=== PATIENT | female | born 1960 | race Caucasian/White ===

== ENCOUNTER 2016-09-01 09:22 | Observation (INO) | payer OTHER ==
[~2016-09-01] VITALS: Ht 167.6 cm; Wt 74.3 kg
[2016-09-01 10:25] LABS: HEMATOCRIT 37.9 % (36.0-46.0); MCH 29.7 PG (29.0-34.0); MCHC 32.7 G/DL (30.0-36.0); MCV 90.7 FL (83-99); MEAN PLAT.VOLUME 12.4 uM^3 (9.5-12.4); PLATELET COUNT 146 K/uL (156-360); RBC DIS.WIDTH-CV 13.5 % (11.8-14.6); RBC DIS.WIDTH-SD 44.8 % (39-53); RED BLOOD COUNT 4.18 M/uL (3.80-5.20); WHITE BLOOD COUNT 6.6 K/uL (4.1-10.2)
[2016-09-01 10:33] LABS: CHLORIDE 108 mEq/L (99-109); SODIUM 143 mEq/L (136-147)
[2016-09-01 10:36] LABS: GLUCOSE 104 mg/dL (70-99)
[2016-09-01 10:37] LABS: ANION GAP 8 MEQ/L (2-14); TOTAL BILIRUBIN 0.4 mg/dL (0.0-1.0)
[2016-09-01 10:39] LABS: ALKALINE PHOSPHATASE 74 IU/L (3-129); GFR ESTIMATE (CALCULATED) > 59 mL/min/
[2016-09-01 10:40] LABS: UREA NITROGEN (BUN) 13 mg/dL (9-23)
[2016-09-01 10:46] LABS: TROP-I INTERPRETATION NEGATIVE; TROPONIN-I < 0.01 ng/mL (0.0-0.30)
[2016-09-01] MEDS ORDERED: MELOXICAM15 MG PO (14:51)
[2016-09-01] MEDS ORDERED: WELLBUTRIN XL150 MG PO (14:51)
[2016-09-01] MEDS ORDERED: MAGNESIUM200 MG PO (14:52)
[2016-09-01] MEDS ORDERED: L-LYSINE500 M1 PO (14:52)
[2016-09-01] MEDS ORDERED: VITAMIN D31000 UNI2 PO (14:52)
[2016-09-01] MEDS ORDERED: PATADAY2.5 ML BOTH EYES (14:52)
[2016-09-01] MEDS ORDERED: AMBIEN10 MG PO (14:53)
[2016-09-01] MEDS ORDERED: QNASL8.7 GM BOTH NARES (14:57)
[2016-09-01 16:37] LABS: D-DIMER ELISA < 150.00 ng/mLDDU (<230)
[2016-09-01 16:47] LABS: TROP-I INTERPRETATION NEGATIVE; TROPONIN-I < 0.01 ng/mL (0.0-0.30)
[2016-09-01 16:50] VITALS: BP 130/76
[2016-09-01 17:32] LABS: Estimated Average Glucose 117 mg/dL (70-123); HEMOGLOBIN A1c (GLYCOHEMOGLOB) 5.7 % HGB (Below 5.7)
[2016-09-01 19:34] VITALS: BP 131/79
[2016-09-01 23:00] VITALS: BP 128/77
[2016-09-01 23:24] LABS: TROP-I INTERPRETATION NEGATIVE; TROPONIN-I < 0.01 ng/mL (0.0-0.30)
[2016-09-02 03:17] VITALS: BP 124/77
[2016-09-02 05:12] LABS: HEMATOCRIT 38.8 % (36.0-46.0); MCH 29.7 PG (29.0-34.0); MCHC 32.7 G/DL (30.0-36.0); MCV 90.7 FL (83-99); MEAN PLAT.VOLUME 12.1 uM^3 (9.5-12.4); PLATELET COUNT 147 K/uL (156-360); RBC DIS.WIDTH-CV 13.6 % (11.8-14.6); RBC DIS.WIDTH-SD 45.4 % (39-53); RED BLOOD COUNT 4.28 M/uL (3.80-5.20); WHITE BLOOD COUNT 6.2 K/uL (4.1-10.2)
[2016-09-02 05:40] LABS: ANION GAP 7 MEQ/L (2-14); CHLORIDE 105 MEQ/L (99-109); GFR ESTIMATE (CALCULATED) > 59 mL/min/; GLUCOSE 112 mg/dL (70-99); HDL CHOLESTEROL 52 MG/DL (Desirable>=50); LDL CHOLESTEROL 134 mg/dL (Desirable<100); NON-HDL CHOLESTEROL 176 mg/dL (Desirable<160); POTASSIUM 4.2 MEQ/L (3.7-5.4); SAMPLE HEMOLYSIS CHECK 0; SAMPLE ICTERIC CHECK 0; SAMPLE LIPEMIA CHECK 0; SODIUM 141 MEQ/L (136-147); TOTAL CHOLESTEROL 228 mg/dL (Desirable<200); TRIGLYCERIDES 210 MG/DL (Normal: <150); UREA NITROGEN (BUN) 16 mg/dL (9-23)
[2016-09-02 07:13] VITALS: BP 138/76
== END 2016-09-02 11:39 | disposition home or self-care (01) ==
LOC: EME 09:22 → EDOF 14:55 → 5WEST 14:55 → ENRESERV 14:56 → 5WEST 16:28 → ENPENDDIS 09-02 11:38 → 5WEST 09-02 11:39
PROVIDERS: Emergency Medicine; Physician Assistant
DX: R07.9 Chest pain, unspecified (principal); Z85.72 Personal history of non-Hodgkin lymphomas; F32.9 Major depressive disorder, single episode, unspecified; F41.9 Anxiety disorder, unspecified; Z78.0 Asymptomatic menopausal state; M79.661 Pain in right lower leg; Z82.49 Family history of ischemic heart disease and other diseases of the circulatory system
CPT/HCPCS: 71020; 80048; 80053; 80061; 83036; 84484; 84702; 85027; 85379; 93005; 99281; 99285; G0378; J1650